=== PATIENT | male | born 1955 | race African-American/Black ===

== ENCOUNTER → 2017-06-30 | Outpatient (CLI) | payer MEDICAID ==
[2015-11-30 10:34] VITALS: BP 187/109
[2017-06-30 09:07] LABS: BASOPHILS % (AUTO) 0.6 % (0.2-1.0); EOSINOPHILS # (AUTO) 0.1 x10^3/uL (0.0-0.2); EOSINOPHILS % (AUTO) 1.5 % (0.9-2.9); HEMATOCRIT 40.9 % (42.0-54.0); HEMOGLOBIN 13.3 g/dL (13.5-18.0); LYMPHOCYTES # (AUTO) 2.5 X10^3/uL (1.3-2.9); LYMPHOCYTES % (AUTO) 33.3 % (21.0-51.0); MEAN CORPUSCULAR HEMOGLOBIN 26.4 pg (27.0-34.0); MEAN CORPUSCULAR HGB CONC 32.6 g/dL (33.0-35.0); MONOCYTES # (AUTO) 0.9 x10^3/uL (0.3-0.8); MONOCYTES % (AUTO) 12.1 % (0.0-13.0); NEUTROPHILS # (AUTO) 3.9 x10^3/uL (2.2-4.8); NEUTROPHILS % (AUTO) 52.5 % (42.0-75.0); PLATELET COUNT 274 X10^3/uL (150.0-450.0); RED BLOOD COUNT 5.04 X10^6/uL (4.7-6.0); RED CELL DISTRIBUTION WIDTH 15.6 % (11.6-16.5); WHITE BLOOD COUNT 7.4 X10^3/uL (3.6-10.0)
[2017-06-30 09:12] LABS: ALANINE AMINOTRANSFERASE 17 Units/L (12-78); ALBUMIN 3.5 g/dL (3.4-5.0); ALKALINE PHOSPHATASE 76 Units/L (46-116); ASPARTATE AMINO TRANSFERASE 13 Units/L (15-37); BLOOD UREA NITROGEN 13 mg/dL (7-18); CALCIUM 8.8 mg/dL (8.5-10.1); CARBON DIOXIDE 27.4 mmol/L (21-32); CHLORIDE 106 mmol/L (98-107); COR NA(FOR HYPERGLY) 141 mmol/L (136-145); CREATININE 1.45 mg/dL (0.70-1.30); GLUCOSE 131 mg/dL (65-99); SODIUM 140 mmol/L (136-145); TOTAL PROTEIN 8.3 g/dL (6.4-8.2); eGFR BLACK RACES > 60 (>60); eGFR NON BLACK RACES 52 (>60)
[2017-06-30 09:25] LABS: TOTAL PSA 3.44 ng/mL (0.13-4.0)
== END ==
LOC: LAB 08:36
PROVIDERS: ATTEND Obstetrics & Gynecology Obstetrics
DX: E29.1 Testicular hypofunction (principal)
CPT/HCPCS: 36415; 80053; 82670; 84153; 84403; 85025

== ENCOUNTER → 2018-03-23 | Outpatient (CLI) | payer OTHER, MEDICAID ==
[2015-11-30 10:34] VITALS: BP 187/109
[2018-03-23 09:00] LABS: BASOPHILS # (AUTO) 0.1 X10^3/uL (0.0-0.1); BASOPHILS % (AUTO) 1.1 % (0.2-1.0); EOSINOPHILS # (AUTO) 0.2 x10^3/uL (0.0-0.2); HEMATOCRIT 38.9 % (42.0-54.0); LYMPHOCYTES # (AUTO) 2.8 X10^3/uL (1.3-2.9); LYMPHOCYTES % (AUTO) 34.7 % (21.0-51.0); MEAN CORPUSCULAR HEMOGLOBIN 26.8 pg (27.0-34.0); MEAN CORPUSCULAR HGB CONC 33.4 g/dL (33.0-35.0); MEAN CORPUSCULAR VOLUME 80.3 fL (80.0-100.0); MEAN PLATELET VOLUME 7.7 fL (7.4-11.0); MONOCYTES # (AUTO) 0.9 x10^3/uL (0.3-0.8); MONOCYTES % (AUTO) 11.6 % (0.0-13.0); NEUTROPHILS # (AUTO) 4.1 x10^3/uL (2.2-4.8); NEUTROPHILS % (AUTO) 50.6 % (42.0-75.0); PLATELET COUNT 267 X10^3/uL (150.0-450.0); RED BLOOD COUNT 4.85 X10^6/uL (4.7-6.0); RED CELL DISTRIBUTION WIDTH 15.6 % (11.6-16.5); WHITE BLOOD COUNT 8.1 X10^3/uL (3.6-10.0)
[2018-03-23 09:10] LABS: ALANINE AMINOTRANSFERASE 23 Units/L (12-78); ALBUMIN 3.5 g/dL (3.4-5.0); ALKALINE PHOSPHATASE 79 Units/L (46-116); ASPARTATE AMINO TRANSFERASE 14 Units/L (15-37); BLOOD UREA NITROGEN 12 mg/dL (7-18); CALCIUM 8.9 mg/dL (8.5-10.1); CARBON DIOXIDE 29.4 mmol/L (21-32); CHLORIDE 101 mmol/L (98-107); CHOL/HDL RATIO 5.9 (0.0-5.0); CHOLESTEROL 213 mg/dL (0-200); CREATININE 1.48 mg/dL (0.70-1.30); HDL CHOLESTEROL 36 mg/dL (40-60); SODIUM 137 mmol/L (136-145); TOTAL PROTEIN 8.2 g/dL (6.4-8.2); TRIGLYCERIDES 222 mg/dL (0-150); eGFR BLACK RACES > 60 (>60); eGFR NON BLACK RACES 51 (>60)
[2018-03-23 09:27] LABS: TOTAL PSA 5.71 ng/mL (0.13-4.0)
== END ==
LOC: LAB 08:35
PROVIDERS: ATTEND Obstetrics & Gynecology Obstetrics
DX: N40.0 Benign prostatic hyperplasia without lower urinary tract symptoms (principal); I10 Essential (primary) hypertension
CPT/HCPCS: 36415; 80053; 80061; 83525; 84153; 85025

== ENCOUNTER 2019-03-22 13:56 | Inpatient (IN) ==
[2019-03-22 14:16] VITALS: BMI 27.0
--- NOTE | 2019-03-22 14:49 | DR.ABDMALE ---
HPI Time seen Time Seen by Provider: 03/22/19 14:38 PCP Primary Care Physician: Nicola Complaint Chief Complaint Doctors Comments: Patient admits to stomach pain for six days. Denies fever. Admits to vomiting yesterday and today. Chief Complaint:: "Around Tuesday I started having loose stools. Tuesday I started throwing up as well. My stomach has been hurting nonstop this whole time. Also, I haven't been able to eat anything since around Tuesday. I feel like I have been running a fever off and on as well." Source History provided by:: patient Mode of arrival Mode of Arrival: Ambulatory Timing Onset of Chief Complaint: 03/18/19 PMH PMH Past Medical History: Yes Past Medical History: GERD and Hypertension Past Surgical History: Yes Surgical History: Abdominal Surgery, Ortho Surgery and Other Past Surgical History Comment: Hernia Family History History of Family Medical Conditions: Yes Family Medical History: Cancer and Hypertension Social History Does patient currently use any type of tobacco product: Yes Have you used tobacco products in the last 12 months: Yes Type of Tobacco Use: Cigarettes Does any household member use tobacco: No Alcohol Use: Occasionally Do you use any recreational Drugs:: No Lives With: Alone Lives Where: Home infectious screening In the last 2 months have you had wt loss of >10#?: NO Have you had fever, night sweats or hemotysis?: No Have you traveled outside the country in the last 6 months?: No Isolation: Standard ROS Review of Systems Constitutional: No Symptoms Reported Respiratoy: No Symptoms Reported Gastrointestinal/Abdominal: See HPI, Abdominal Pain and Vomiting Genitourinary: No Symptoms Reported Neurological: No Symptoms Reported Musculoskeletal: No Symptoms Reported Integumentary: No Symptoms Reported Hematologic/Lymphatic: No Symptoms Reported Endocrine: No Symptoms Reported Psychiatric: No Symptoms Reported All Other Systems: Reviewed and Negative PE Vital Signs Vital Signs: Temp Pulse Pulse Resp BP BP BP 03/22/19 21:30 18 03/22/19 20:56 109 H 20 154/87 03/22/19 14:11 98.9 F 87 18 138/65 11/30/15 10:32 187/109 08/23/15 12:36 154/83 08/29/14 16:58 122/65 Pulse Ox 03/22/19 21:30 03/22/19 20:56 100 03/22/19 14:11 97 11/30/15 10:32 08/23/15 12:36 08/29/14 16:58 General Limitations: No Limitations General Appearance: Alert and In No Apparent Distress Head Head Exam: Normal Inspection, Atraumatic and Normocephalic Eyes Eye exam: Normal Appearance, PERRL and EOMI ENT ENT Exam: Normal Exam, Normal Oropharynx and Normal External Ear Exam Neck Neck Exam: Normal Inspection and Full ROM Chest Chest Inspection: Normal Inspection and Symmetric Chest Wall Rise Respiratory Respiratory Exam: Normal Lung Sounds Bilat Respiratory Exam: Bilateral: Clear to Auscultation Cardiovascular Cardiovascular Exam: Regular Rate and Normal Rhythm Abdominal Exam Abdominal Exam: Normal Inspection, Normal Bowel Sounds and Soft Abdominal Tenderness: Diffuse Rectal Rectal Exam: Deferred Back Back Exam: Normal Inspection Extremeties Extremities Exam: Normal Inspection and Full ROM Exam: Male: Deferred Neurologic Neurological Exam: Alert, Oriented X3 and CN II-XII Intact Psychiatric Psychiatric Exam: Normal Affect and Normal Mood Skin Skin Exam: Warm, Dry and Intact MDM Additional Information Obtained From Additional Findings:: fecal impaction, obstruction COURSE Treatment Treatment: Antiemetic-awaiting C/T abdomen Reevaluation 1st: Unchanged ROR Labs Reviewed Laboratory Results Reviewed?: Yes Result Diagrams: 03/22/19 14:50 03/22/19 14:50 Laboratory: WBC 8.9 X10^3/uL (3.6-10.0) 03/22/19 14:50 RBC 5.11 X10^6/uL (4.7-6.0) 03/22/19 14:50 Hgb 14.3 g/dL (13.5-18.0) 03/22/19 14:50 Hct 42.8 % (42.0-54.0) 03/22/19 14:50 MCV 83.7 fL (80.0-100.0) 03/22/19 14:50 MCH 28.0 pg (27.0-34.0) 03/22/19 14:50 MCHC 33.5 g/dL (33.0-35.0) 03/22/19 14:50 RDW 14.8 % (11.6-16.5) 03/22/19 14:50 Plt Count 202 X10^3/uL (150.0-450.0) 03/22/19 14:50 Plt Count Comment Adequate (ADEQUATE) 03/22/19 14:50 MPV 8.0 fL (7.4-11.0) 03/22/19 14:50 Neut % (Auto) 49.2 % (42.0-75.0) 03/22/19 14:50 Lymph % (Auto) 22.8 % (21.0-51.0) 03/22/19 14:50 [place] % (Auto) 27.4 % (0.0-13.0) H 03/22/19 14:50 Eos % (Auto) 0.4 % (0.9-2.9) L 03/22/19 14:50 Baso % (Auto) 0.2 % (0.2-1.0) 03/22/19 14:50 Neut # (Auto) 4.4 x10^3/uL (2.2-4.8) 03/22/19 14:50 Lymph # (Auto) 2.0 X10^3/uL (1.3-2.9) 03/22/19 14:50 [place] # (Auto) 2.4 x10^3/uL (0.3-0.8) H 03/22/19 14:50 Eos # (Auto) 0.0 x10^3/uL (0.0-0.2) 03/22/19 14:50 Baso # (Auto) 0.0 X10^3/uL (0.0-0.1) 03/22/19 14:50 Absolute Nucleated RBC 0.0 /100WBC 03/22/19 14:50 Total Counted 100 03/22/19 14:50 Neutrophils % (Manual) 40 % (39-76) 03/22/19 14:50 Band Neutrophils % 4 % (0-10) 03/22/19 14:50 Lymphocytes % (Manual) 30 % (13-43) 03/22/19 14:50 Monocytes % (Manual) 18 % (4-9) H 03/22/19 14:50 Atypical Lymphocytes 8 03/22/19 14:50 Plt Morphology Comment Normal (NORMAL) 03/22/19 14:50 RBC Morphology Normal (NORMAL) 03/22/19 14:50 Sodium 137 mmol/L (136-145) 03/22/19 14:50 Corrected Sodium TNP 03/22/19 14:50 Potassium 3.7 mmol/L (3.5-5.1) 03/22/19 14:50 Chloride 99 mmol/L (98-107) 03/22/19 14:50 Carbon Dioxide 24.0 mmol/L (21-32) 03/22/19 14:50 BUN 29 mg/dL (7-18) H 03/22/19 14:50 Creatinine 1.86 mg/dL (0.70-1.30) H 03/22/19 14:50 Est GFR (MDRD) Af Amer 47 (>60) L 03/22/19 14:50 Est GFR (MDRD) Non-Af 39 (>60) L 03/22/19 14:50 Glucose 107 mg/dL (65-99) H 03/22/19 14:50 Calcium 8.9 mg/dL (8.5-10.1) 03/22/19 14:50 Corrected Calcium 9.5 mg/dL (8.5-10.1) 03/22/19 14:50 Magnesium 1.5 mg/dL (1.7-2.9) L 03/22/19 14:50 Total Bilirubin 0.70 mg/dL (0.2-1.0) 03/22/19 14:50 AST 16 Units/L (15-37) 03/22/19 14:50 ALT 17 Units/L (12-78) 03/22/19 14:50 Alkaline Phosphatase 64 Units/L (46-116) 03/22/19 14:50 C-Reactive Protein 231.30 mg/L (0-3.0) H 03/22/19 14:50 Total Protein 8.5 g/dL (6.4-8.2) H 03/22/19 14:50 Albumin 3.3 g/dL (3.4-5.0) L 03/22/19 14:50 Globulin 5.2 g/dL (2.5-4.5) H 03/22/19 14:50 Albumin/Globulin Ratio 0.6 Ratio (1.1-2.1) L 03/22/19 14:50 Other Results Comments: Abd/pel: No acute cardiopulmonary process. Gas and stool throughout the colon with gas overlying the rectum. However, air fluid levels distended small bowel loops left hemiabdomen that measure up to 3.9cm. Findings mos in keeping with at least partial small bowel obstruction. CT abdomen and pelvis with contrast and surgical consultation should be considered. XRAY XRAY Interpreted by: Radiologist Procedures Splinting Pre-Proc Neuro Vasc Exam: normal Diagnosis Discharge Problem: Partial small bowel obstruction, Dehydration, mild
[2019-03-22 15:05] LABS: BASOPHILS % (AUTO) 0.2 % (0.2-1.0); EOSINOPHILS % (AUTO) 0.4 % (0.9-2.9); HEMATOCRIT 42.8 % (42.0-54.0); HEMOGLOBIN 14.3 g/dL (13.5-18.0); LYMPHOCYTES % (AUTO) 22.8 % (21.0-51.0); MEAN CORPUSCULAR HGB CONC 33.5 g/dL (33.0-35.0); MEAN CORPUSCULAR VOLUME 83.7 fL (80.0-100.0); MONOCYTES # (AUTO) 2.4 x10^3/uL (0.3-0.8); MONOCYTES % (AUTO) 27.4 % (0.0-13.0); NEUTROPHILS # (AUTO) 4.4 x10^3/uL (2.2-4.8); NEUTROPHILS % (AUTO) 49.2 % (42.0-75.0); PLATELET COUNT 202 X10^3/uL (150.0-450.0); RED BLOOD COUNT 5.11 X10^6/uL (4.7-6.0); RED CELL DISTRIBUTION WIDTH 14.8 % (11.6-16.5); WHITE BLOOD COUNT 8.9 X10^3/uL (3.6-10.0)
[2019-03-22 15:13] LABS: ALANINE AMINOTRANSFERASE 17 Units/L (12-78); ALBUMIN 3.3 g/dL (3.4-5.0); ALKALINE PHOSPHATASE 64 Units/L (46-116); ASPARTATE AMINO TRANSFERASE 16 Units/L (15-37); BLOOD UREA NITROGEN 29 mg/dL (7-18); CALCIUM 8.9 mg/dL (8.5-10.1); CHLORIDE 99 mmol/L (98-107); COR CA(FOR HYPOALB) 9.5 mg/dL (8.5-10.1); CREATININE 1.86 mg/dL (0.70-1.30); SODIUM 137 mmol/L (136-145); TOTAL PROTEIN 8.5 g/dL (6.4-8.2); eGFR NON BLACK RACES 39 (>60)
[2019-03-22 15:48] LABS: BAND NEUTROPHILS % 4 % (0-10)
[2019-03-22 15:49] LABS: PLATELET MORPHOLOGY COMMENT NORMAL (NORMAL)
--- NOTE | 2019-03-22 16:25 | RAD ---
ACUTE ABDOMINAL SERIES CLINICAL HISTORY: 63-year-old male with abdominal pain for 3 days with nausea vomiting. COMPARISON: None. FINDINGS: Partially imaged right reverse total shoulder arthroplasty. AP chest radiograph demonstrates normal cardiopericardial silhouette. There is no focal consolidation, pleural effusion or pneumothorax. Pulmonary vascularity is normal. Multiple air-fluid levels on upright imaging within distended small bowel loops within the left hemiabdomen measuring up to 3.9 cm on supine imaging. Gas and stool are seen throughout the colon. There is no small bowel distention. There is no radiographic evidence of pneumoperitoneum. Surgical tacks overlie the pelvis. Imaged osseous structures are intact. Soft tissues are unremarkable. IMPRESSION: 1. No acute cardiopulmonary process. 2. Gas and stool throughout the colon with gas overlying the rectum. However, air-fluid levels distended small bowel loops left hemiabdomen that measure up to 3.9 cm. Findings most in keeping with at least partial small bowel obstruction. CT abdomen and pelvis with contrast and surgical consultation should be considered. Reported By:
--- NOTE | 2019-03-22 21:05 | CT ---
CT ABDOMEN AND PELVIS WITH ORAL CONTRAST CLINICAL HISTORY: 63-year-old male with vomiting and diarrhea with abdominal pain. COMPARISON: None. TECHNIQUE: Multiple axial CT images of the abdomen and pelvis were obtained following the administration of oral contrast followed by 3.5 hr delay. No intravenous contrast was administered. The images were reformatted in the sagittal and coronal planes. Dose reduction techniques including Automated Exposure Control (AEC) and adjustment of mA and kV were utilized. FINDINGS: Scattered emphysema with pneumatoceles bilateral lower lobes without mass, nodule, effusion or pneumothorax. No consolidation. The inferior imaged heart is normal in size and there is no pericardial effusion. The liver, gallbladder, pancreas, and spleen are within normal limits for a study without IV contrast. The adrenal glands and kidneys are normal in appearance for a study without IV contrast. The ureters run in an unobstructed course to a well distended urinary bladder. No nephroureterolithiasis or hydroureteronephrosis. The prostate, seminal vesicles, and external genitalia are within normal limits. Evidence of prior bilateral inguinal hernia repair. Multiple fluid-filled distended loops of small bowel measuring up to 3.1 cm with relative decompression of small bowel within the right lower quadrant with large volume contrast persisting in the stomach and minimal contrast progressing through small bowel. Oral contrast reaches proximal ileum. Small hiatal hernia. Severe, diffuse diverticular disease without diverticulitis. Colon is otherwise unremarkable. Appendix is normal. There are no pathologically enlarged lymph nodes in the abdomen or pelvis. Severe atherosclerotic calcification abdominal aorta and its branches. Soft tissues are normal. The osseous structures are intact without fracture or malalignment. IMPRESSION: 1. Findings as above suggest at least partial small bowel obstruction with suspected transition point right lower quadrant. Recommend surgical evaluation. 2. Severe, diffuse diverticular disease without diverticulitis. 3. Normal appendix. 4. Normal gallbladder. Reported By:
[2019-03-22] MEDS ORDERED: MORPHINE SULFATE INJ 4 MG IVP PRN ×2 (21:13→23:41)
[2019-03-22] MEDS ORDERED: ZOFRAN INJ 4 MG VIAL IVP PRN ×2 (21:13→23:34)
[2019-03-22] MEDS ORDERED: ROCEPHIN VIAL 2 GRAMS IVP SCH (22:00)
[2019-03-22] MEDS ORDERED: NS 1000 ML 1,000 ML IV SCH (22:00)
[2019-03-22] MEDS: NS 1000 ML 1,000 ML IV SCH (23:55)
[2019-03-23] MEDS ORDERED: K-DUR TAB 20 MEQ PO PRN (00:29)
[2019-03-23] MEDS ORDERED: POTASSIUM CHL 40 MEQ/NS 0.45% 500 ML IV PRN (00:29)
[2019-03-23] MEDS ORDERED: POTASSIUM CHL 60 MEQ/NS 0.45% 500 ML IV PRN (00:29)
[2019-03-23] MEDS ORDERED: POTASSIUM CHLORIDE LIQ 20 MEQ UDC PO PRN (00:29)
[2019-03-23] MEDS ORDERED: KLOR-CON PO PRN (00:29)
[2019-03-23] MEDS ORDERED: MICRO K EXTEN CAP 10 MEQ PO PRN (00:29)
[2019-03-23] MEDS ORDERED: K-RIDER 10 MEQ/NS 100 ML 10 MEQ/100 ML BAG IV PRN (00:29)
[2019-03-23] MEDS ORDERED: MAGNESIUM SULFATE 1 GRAM/100 mL PREMIX 2 G/200 ML BAG IV ONE (01:31)
[2019-03-23] MEDS: MAGNESIUM SULFATE 1 GRAM/100 mL PREMIX 1 GM/100 ML BAG IV PRN ×2 (01:33→02:52)
[2019-03-23 05:19] LABS: BASOPHILS % (AUTO) 0.1 % (0.2-1.0); EOSINOPHILS % (AUTO) 0.2 % (0.9-2.9); HEMATOCRIT 41.8 % (42.0-54.0); HEMOGLOBIN 13.8 g/dL (13.5-18.0); LYMPHOCYTES # (AUTO) 1.5 X10^3/uL (1.3-2.9); LYMPHOCYTES % (AUTO) 26.7 % (21.0-51.0); MEAN CORPUSCULAR HEMOGLOBIN 27.7 pg (27.0-34.0); MEAN PLATELET VOLUME 8.7 fL (7.4-11.0); MONOCYTES # (AUTO) 1.2 x10^3/uL (0.3-0.8); MONOCYTES % (AUTO) 22.8 % (0.0-13.0); NEUTROPHILS # (AUTO) 2.7 x10^3/uL (2.2-4.8); NEUTROPHILS % (AUTO) 50.2 % (42.0-75.0); PLATELET COUNT 212 X10^3/uL (150.0-450.0); RED BLOOD COUNT 4.97 X10^6/uL (4.7-6.0); RED CELL DISTRIBUTION WIDTH 14.9 % (11.6-16.5); WHITE BLOOD COUNT 5.5 X10^3/uL (3.6-10.0)
[2019-03-23 05:30] LABS: ALBUMIN 2.9 g/dL (3.4-5.0); CALCIUM 8.6 mg/dL (8.5-10.1); CARBON DIOXIDE 23.9 mmol/L (21-32); COR CA(FOR HYPOALB) 9.5 mg/dL (8.5-10.1); CREATININE 1.63 mg/dL (0.70-1.30); TOTAL PROTEIN 7.8 g/dL (6.4-8.2)
[2019-03-23 06:03] LABS: BAND NEUTROPHILS % 10 % (0-10); PLATELET MORPHOLOGY COMMENT NORMAL (NORMAL)
--- NOTE | 2019-03-23 06:12 | RAD ---
HISTORY: Small-bowel obstruction Study: KUB Comparison: 03/22/[address] abdomen pelvis Findings: Multiple dilated loops of small bowel are identified in the left upper quadrant with little gas distally. Findings are most consistent with small-bowel obstruction and not significantly changed from the prior examination. No abnormal masses or abnormal calcifications are identified. The regional skeleton is intact. IMPRESSION: Findings consistent with small-bowel obstruction Reported By:
--- NOTE | 2019-03-23 09:11 | DR.PROGNOT ---
Hospital Progress Notes - Progress Note for Day of: Progress Note Date: 03/23/19 - Chief Complaint Chief Complaint: feeling much better this morning . had large BM this am . abdominal xray still showing partial SBO .. Pt rerfused NGT last night . - Past Medical Family Social History Past Med/Fam/Surg Hx: No changes since H&P Allergies: Allergies No Known Drug Allergies Allergy (Verified 03/22/19 14:10) - Review Of Systems ROS: No change since H&P - Vital Signs Vital Signs: Temperature 98.6 F Pulse Rate [Right Brachial] 79 Pulse Rate 79 Respiratory Rate 27 Blood Pressure [Left Arm] 140/63 Blood Pressure [Right Arm] 142/67 Blood Pressure 135/64 O2 Sat by Pulse Oximetry 97 - Physical Exam Oriented: Normal Eyes: Normal Ear: Normal Nose: Normal Cardiovascular: Normal : Normal GI:Auscultation: Normal GI: Tenderness: Other (moderate distention and diffuse tenderness , BS +) Speech Pattern: Clear, Appropriate - Laboratory and Diagnostics Result Diagrams: 03/23/19 04:01 03/23/19 04:01 Labs: Laboratory WBC 5.5 X10^3/uL (3.6-10.0) 03/23/19 04:01 RBC 4.97 X10^6/uL (4.7-6.0) 03/23/19 04:01 Hgb 13.8 g/dL (13.5-18.0) 03/23/19 04:01 Hct 41.8 % (42.0-54.0) L 03/23/19 04:01 MCV 84.0 fL (80.0-100.0) 03/23/19 04:01 MCH 27.7 pg (27.0-34.0) 03/23/19 04:01 MCHC 33.0 g/dL (33.0-35.0) 03/23/19 04:01 RDW 14.9 % (11.6-16.5) 03/23/19 04:01 Plt Count 212 X10^3/uL (150.0-450.0) 03/23/19 04:01 Plt Count Comment Adequate (ADEQUATE) 03/23/19 04:01 MPV 8.7 fL (7.4-11.0) 03/23/19 04:01 Neut % (Auto) 50.2 % (42.0-75.0) 03/23/19 04:01 Lymph % (Auto) 26.7 % (21.0-51.0) 03/23/19 04:01 [place] % (Auto) 22.8 % (0.0-13.0) H 03/23/19 04:01 Eos % (Auto) 0.2 % (0.9-2.9) L 03/23/19 04:01 Baso % (Auto) 0.1 % (0.2-1.0) L 03/23/19 04:01 Neut # (Auto) 2.7 x10^3/uL (2.2-4.8) 03/23/19 04:01 Lymph # (Auto) 1.5 X10^3/uL (1.3-2.9) 03/23/19 04:01 [place] # (Auto) 1.2 x10^3/uL (0.3-0.8) H 03/23/19 04:01 Eos # (Auto) 0.0 x10^3/uL (0.0-0.2) 03/23/19 04:01 Baso # (Auto) 0.0 X10^3/uL (0.0-0.1) 03/23/19 04:01 Absolute Nucleated RBC 0.0 /100WBC 03/23/19 04:01 Total Counted 100 03/23/19 04:01 Neutrophils % (Manual) 28 % (39-76) L 03/23/19 04:01 Band Neutrophils % 10 % (0-10) 03/23/19 04:01 Lymphocytes % (Manual) 32 % (13-43) 03/23/19 04:01 Monocytes % (Manual) 30 % (4-9) H 03/23/19 04:01 Atypical Lymphocytes 8 03/22/19 14:50 Plt Morphology Comment Normal (NORMAL) 03/23/19 04:01 RBC Morphology Normal (NORMAL) 03/23/19 04:01 Sodium 136 mmol/L (136-145) 03/23/19 04:01 Corrected Sodium 136 mmol/L (136-145) 03/23/19 04:01 Potassium 3.5 mmol/L (3.5-5.1) 03/23/19 04:01 Chloride 99 mmol/L (98-107) 03/23/19 04:01 Carbon Dioxide 23.9 mmol/L (21-32) 03/23/19 04:01 BUN 31 mg/dL (7-18) H 03/23/19 04:01 Creatinine 1.63 mg/dL (0.70-1.30) H 03/23/19 04:01 Est GFR (MDRD) Af Amer 55 (>60) L 03/23/19 04:01 Est GFR (MDRD) Non-Af 45 (>60) L 03/23/19 04:01 Glucose 118 mg/dL (65-99) H 03/23/19 04:01 Calcium 8.6 mg/dL (8.5-10.1) 03/23/19 04:01 Corrected Calcium 9.5 mg/dL (8.5-10.1) 03/23/19 04:01 Magnesium 2.8 mg/dL (1.7-2.9) 03/23/19 04:01 Total Bilirubin 0.50 mg/dL (0.2-1.0) 03/23/19 04:01 AST 14 Units/L (15-37) L 03/23/19 04:01 ALT 15 Units/L (12-78) 03/23/19 04:01 Alkaline Phosphatase 56 Units/L (46-116) 03/23/19 04:01 C-Reactive Protein 231.30 mg/L (0-3.0) H 03/22/19 14:50 Total Protein 7.8 g/dL (6.4-8.2) 03/23/19 04:01 Albumin 2.9 g/dL (3.4-5.0) L 03/23/19 04:01 Globulin 4.9 g/dL (2.5-4.5) H 03/23/19 04:01 Albumin/Globulin Ratio 0.6 Ratio (1.1-2.1) L 03/23/19 04:01 - Assessment and Plan 1: subsiding partial SBO . adhesions vs IBD . same conservative measures .clear liquid . repeat xray in am. future GI W/U . will follow in the office next week. - Problem Patient Problems: Patient Problems Partial small bowel obstruction (Acute) K56.600 Dehydration, mild (Acute) E86.0
[2019-03-23] MEDS: NS 1000 ML 1,000 ML IV SCH ×4 (09:27→23:45)
[2019-03-23] MEDS: PROTONIX INJ 40 MG VIAL IVP SCH (09:27)
[2019-03-23] MEDS: ROCEPHIN VIAL 2 GRAMS 2 G in NS 100 ML IV + SPIKE MINIBAG* 100 ML IV SCH ×2 (09:27→20:44)
--- NOTE | 2019-03-23 10:49 | RAD ---
HISTORY: Abdominal pain Study: Flat and upright abdomen, PA chest Comparison: 03/23/2019 Findings: The heart is enlarged. No congestive heart failure is noted. The [place] are normal. The lung lindsay are clear. Multiple dilated small bowel loops are present in the upper mid abdomen but with some gas distally. Findings are consistent with at least a partial small bowel obstruction. No pneumoperitoneum is identified. No abnormal masses or abnormal calcifications are identified. IMPRESSION: Findings consistent with at least a partial small bowel obstruction Mild cardiomegaly without congestive heart failure Lungs clear Reported By:
[2019-03-23] MEDS: LINZESS PO SCH (12:52)
[2019-03-23] MEDS ORDERED: TYLENOL 325 MG TAB PO PRN (16:59)
[2019-03-23] MEDS: RESTORIL CAP 15 MG PO PRN (20:43)
[2019-03-24 05:40] LABS: BASOPHILS % (AUTO) 0.2 % (0.2-1.0); EOSINOPHILS # (AUTO) 0.1 x10^3/uL (0.0-0.2); EOSINOPHILS % (AUTO) 1.5 % (0.9-2.9); HEMATOCRIT 41.3 % (42.0-54.0); HEMOGLOBIN 13.3 g/dL (13.5-18.0); LYMPHOCYTES # (AUTO) 1.5 X10^3/uL (1.3-2.9); LYMPHOCYTES % (AUTO) 32.7 % (21.0-51.0); MEAN CORPUSCULAR HEMOGLOBIN 27.4 pg (27.0-34.0); MEAN CORPUSCULAR HGB CONC 32.3 g/dL (33.0-35.0); MEAN CORPUSCULAR VOLUME 84.9 fL (80.0-100.0); MEAN PLATELET VOLUME 8.7 fL (7.4-11.0); MONOCYTES % (AUTO) 22.2 % (0.0-13.0); NEUTROPHILS % (AUTO) 43.4 % (42.0-75.0); PLATELET COUNT 215 X10^3/uL (150.0-450.0); RED BLOOD COUNT 4.86 X10^6/uL (4.7-6.0); RED CELL DISTRIBUTION WIDTH 14.9 % (11.6-16.5); WHITE BLOOD COUNT 4.6 X10^3/uL (3.6-10.0)
[2019-03-24 05:55] LABS: ALANINE AMINOTRANSFERASE 8 Units/L (12-78); ALBUMIN 2.4 g/dL (3.4-5.0); ALKALINE PHOSPHATASE 45 Units/L (46-116); ASPARTATE AMINO TRANSFERASE 12 Units/L (15-37); BLOOD UREA NITROGEN 14 mg/dL (7-18); CALCIUM 8.2 mg/dL (8.5-10.1); CHLORIDE 108 mmol/L (98-107); COR CA(FOR HYPOALB) 9.5 mg/dL (8.5-10.1); CREATININE 1.17 mg/dL (0.70-1.30); SODIUM 139 mmol/L (136-145); TOTAL PROTEIN 6.6 g/dL (6.4-8.2); eGFR NON BLACK RACES > 60 (>60)
[2019-03-24 06:47] LABS: BAND NEUTROPHILS % 2 % (0-10)
[2019-03-24 06:48] LABS: PLATELET MORPHOLOGY COMMENT NORMAL (NORMAL)
--- NOTE | 2019-03-24 06:50 | RAD ---
Examination: Abdomen series with PA chest, four views History: Abdominal pain Comparison 03/23/2019 Findings: Supine and upright views of abdomen again demonstrate selective small-bowel distention with paucity of colon gas. No free air is demonstrated. Cardiac prominence and clear lungs again noted. There is no evidence for developing mass formation or ascites. Vas deferens calcifications consistent with diabetes. Impression: Persistent small bowel dilatation with pattern described consistent with partial SBO. There is little change in the described pattern since 1 day earlier. Reported By:
[2019-03-24] MEDS ORDERED: COLACE CAP 100 MG PO STA (07:47)
[2019-03-24] MEDS ORDERED: CITROMA PO ONE (07:47)
[2019-03-24] MEDS: ROCEPHIN VIAL 2 GRAMS 2 G in NS 100 ML IV + SPIKE MINIBAG* 100 ML IV SCH ×2 (08:45→20:45)
[2019-03-24] MEDS: LINZESS PO SCH (08:46)
[2019-03-24] MEDS: PROTONIX INJ 40 MG VIAL IVP SCH (08:46)
[2019-03-24] MEDS ORDERED: FLEXERIL TAB 10 MG PO PRN (09:53)
[2019-03-24] MEDS: NEURONTIN TAB 600 MG PO SCH ×3 (10:40→22:40)
[2019-03-24] MEDS: ZESTRIL TAB 10 MG PO SCH (10:41)
[2019-03-24] MEDS: MOBIC TAB 15 MG PO SCH (10:41)
[2019-03-24] MEDS: NS 1000 ML 1,000 ML IV SCH ×2 (10:41→17:53)
[2019-03-24] MEDS: NORCO 10/325 TAB PO PRN (13:56)
[2019-03-24] MEDS: PriLOSEC PO SCH (14:33)
[2019-03-24] MEDS ORDERED: FLOMAX PO SCH (21:00)
--- NOTE | 2019-03-24 22:41 | RAD ---
Acute abdominal series, four views Indication: Partial small bowel obstruction Comparison: 03/24/2019 Findings: There is stable mild cardiomegaly without congestive failure. No focal infiltrate or significant effusion is identified. No pneumothorax. Borderline dilated gas-filled small bowel loops throughout the lower abdomen with relative paucity of gas within the distal colon and rectum appears overall unchanged since earlier today, again suggestive for partial small bowel obstruction. No free air or pneumatosis is identified. No pathologic calcifications seen. Imaged osseous structures are grossly intact. Impression: No acute cardiopulmonary abnormality. Unchanged bowel gas pattern suggestive for persistent partial small bowel obstruction. Reported By:
[2019-03-25] MEDS: RESTORIL CAP 15 MG PO PRN (01:24)
[2019-03-25] MEDS: NS 1000 ML 1,000 ML IV SCH ×2 (02:10→09:22)
[2019-03-25] MEDS: NEURONTIN TAB 600 MG PO SCH ×2 (06:06→13:25)
[2019-03-25] MEDS: MOBIC TAB 15 MG PO SCH (09:19)
[2019-03-25] MEDS: LINZESS PO SCH (09:19)
[2019-03-25] MEDS: ROCEPHIN VIAL 2 GRAMS 2 G in NS 100 ML IV + SPIKE MINIBAG* 100 ML IV SCH (09:19)
[2019-03-25] MEDS: PriLOSEC PO SCH (09:19)
[2019-03-25] MEDS: ZESTRIL TAB 10 MG PO SCH (09:22)
[2019-03-25] MEDS: NORCO 10/325 TAB PO PRN (13:25)
[2019-03-25] MEDS ORDERED: CATAPRES TAB 0.1 MG PO ONE (14:19)
[2019-03-25] MEDS ORDERED: CATAPRES TAB 0.1 MG ONE (14:21)
[2019-03-25 16:10] VITALS: BP 158/82
== END 2019-03-24 15:35 | disposition home or self-care (01) | DRG 390 ==
LOC: ER 14:09 → ICU 20:59 → MED/SURG 03-23 15:59
PROVIDERS: ADMIT Obstetrics & Gynecology Obstetrics; ATTEND Obstetrics & Gynecology Obstetrics
DX: R10.84 Generalized abdominal pain; K21.9 Gastro-esophageal reflux disease without esophagitis; K59.09 Other constipation; E86.0 Dehydration; I10 Essential (primary) hypertension; M13.0 Polyarthritis, unspecified; F41.8 Other specified anxiety disorders; R79.82 Elevated C-reactive protein (CRP); K56.690 Other partial intestinal obstruction; R94.4 Abnormal results of kidney function studies; R11.2 Nausea with vomiting, unspecified
CPT/HCPCS: 36415; 74000; 74018; 74022; 74176; 80053; 83735; 85025; 86140; 96365; 96374; 96375; 99284; A4216; A4222; C9113; J0696; J2270; J2405; J3475; J3490; J7030; J7050

== ENCOUNTER 2019-06-29 18:26 | Inpatient (IN) ==
--- NOTE | 2019-06-29 18:44 | DR.DIZZY ---
HPI Time seen Time Seen by Provider: 06/29/19 18:30 PCP Primary Care Physician: JEREMIE HPI Comment HPI Comment: PATIENT IS 64YR OLD MALE THAT PRESENTS TO ED WITH GENERALIZED WEAKNESS AND SYNCOPAL EPISODES. PATIENT PASSED OUT YESTERDAY AND TODAY. NO FEVER OR HEADACHE. DENIES CHEST PAIN OR HEAD TRAUMA. Complaint Chief Complaint Doctor Comments: GENERALIZED WEAKNESS, FAINTED TODAY. Chief Complaint:: PT STATES HE PASSED OUT YESTERDAY AND TODAY. PT STATES HE WILL WAKE UP AND HE WILL BE ON THE GROUND. Nurses Notes Reviewed Nurses Notes Review: Yes Source History Provided: Patient Mode of Arrival Mode of Arrival: Ambulatory Timing Onset of Chief Complaint: 06/28/19 Duration Duration: Constant Duration: Days Location of Weakness Weakness Location: Generalized Context Onset: With light exertion Does pt take pot. toxic medication?: No History of: CVA Stroke Symptoms: Dizziness Severity Severity: Abnormal activity level Associated signs and symptoms Associated Signs and Symptoms: Syncope Other history Other history: HISTORY HYPERTENSION AND PROSTATE CA. PMH PMH Past Medical History: Yes Past Medical History: GERD and Hypertension Past Medical History Comment: PROSTATE CA Past Surgical History: Yes Surgical History: Abdominal Surgery, Ortho Surgery and Other Family History History of Family Medical Conditions: Yes Family Medical History: Cancer and Hypertension Social History Does patient currently use any type of tobacco product: Yes Have you used tobacco products in the last 12 months: Yes Type of Tobacco Use: Cigarettes Does any household member use tobacco: Yes Alcohol Use: Occasionally Do you use any recreational Drugs:: No Lives With: Family Lives Where: Home infectious screening In the last 2 months have you had wt loss of >10#?: NO Have you had fever, night sweats or hemotysis?: No Have you traveled outside the country in the last 6 months?: No Isolation: Standard ROS Review of Systems Constitutional: No Symptoms Reported, See HPI, Weakness and Fatigue; negative Chills, Diaphoresis, Fever and Loss of Appetite Eyes: No Symptoms Reported and See HPI; negative Eye Pain, Blurred Vision, Tearing, Discharge, Photophobia and Diplopia ENTM: No Symptoms Reported and See HPI; negative Ear Pain, Nose Discharge, Nose Congestion and Throat Pain Respiratoy: No Symptoms Reported and See HPI; negative Moist Cough, Short of Breath and Wheezing Cardiovascular: No Symptoms Reported and See HPI; negative Chest Pain, Edema and Palpitations Gastrointestinal/Abdominal: No Symptoms Reported and See HPI; negative Abdominal Pain, Constipation, Diarrhea, Nausea and Vomiting Genitourinary: No Symptoms Reported and See HPI; negative Dysuria, Frequency and Hematuria Neurological: See HPI, Weakness and Dizziness; negative Headache Musculoskeletal: No Symptoms Reported and See HPI; negative Back Pain and Muscle Pain Integumentary: No Symptoms Reported and See HPI; negative Change in Color, Rash and Juandice Hematologic/Lymphatic: No Symptoms Reported and See HPI; negative Easy Bleeding, Easy Bruising, Swollen Glands and Lymphadenopathy Endocrine: No Symptoms Reported and See HPI; negative Increased Thirst, Increased Urine and Decreased Appetite Psychiatric: No Symptoms Reported and See HPI All Other Systems: Reviewed and Negative PE Vital Signs Vitals: Temperature 98.2 F Pulse Rate [Left] 89 Pulse Rate 88 Respiratory Rate 18 Blood Pressure [Left Arm] 156/72 Blood Pressure [Right Arm] 158/82 Blood Pressure 136/70 O2 Sat by Pulse Oximetry 98 General Limitations: No Limitations General Appearance: Alert and In No Apparent Distress Head Head Exam: Normal Inspection Eyes Eye exam: Normal Appearance, PERRL and EOMI; negative Scleral Icterus and Conjunctival Injection Pupils: Regular, Round: Bilateral and Reactive: Bilateral Sclera/Conjunctival: Normal Inspection: Bilateral ENT ENT Exam: Normal Exam, Normal Oropharynx, Normal External Ear Exam and TM's Normal Bilaterally Neck Neck Exam: Normal Inspection and Trachea Midline; negative Tenderness and Lymphadenopathy Chest Chest Inspection: Normal Inspection and Symmetric Chest Wall Rise; negative Te nderness Respiratory Respiratory Exam: Normal Lung Sounds Bilat; negative Accessory Muscle Use, Chest Wall Tenderness and Respiratory Distress Respiratory Exam: Bilateral: Clear to Auscultation Cardiovascular Cardiovascular Exam: Regular Rate, Normal Rhythm and Normal Heart Sounds; negative Systolic Murmur and Diastolic Murmur Abdominal Exam Abdominal Exam: Normal Inspection, Normal Bowel Sounds and Soft; negative Tenderness Rectal Rectal Exam: Deferred Extremeties Extremities Exam: Normal Inspection and Normal Capillary Refill; negative Tenderness, Edema and Calf Tenderness Back Back Exam: Normal Inspection and Full ROM; negative Tenderness Neurologic Neurological Exam: Alert, Oriented X3 and CN II-XII Intact; negative Motor Sensory Deficit Patient Oriented To: Person, Place and Time Speech: Fluid Speech Cranial Nerve Exam: EOM Function (II, III, IV, ): Normal, Facial Sensation (V): Normal, Facial Palsy (VII): Normal, Gag reflex (XI): Normal, Spinal Accessory Function (XI): Normal and Tongue Deviation: Normal Motor Strength - LUE: 5/5 Motor Strength - RUE: 5/5 Motor Strength - LLE: 5/5 Motor Strength - RLE: 5/5 Upper Motor Neuron Exam: Babinski Sign: Normal Psychiatric Psychiatric Exam: Normal Affect and Normal Mood Skin Skin Exam: Warm, Dry, Intact and Normal Color MDM Differential Diagnosis Differential Diagnosis: Anemia, CVA, Dehydration, Dysrhythmia, Electrolyte disorder, Hypoglycemia, Labyrinthitis, Myocardial infarction, Pulmonary embolus, TIA and Central Vertigo COURSE Treatment Treatment: SEE ORDERS. NS 1L IV BOLUS. Consultation Consultation Comments: PATIENT DISCUSS WITH DR. SANCHEZ. HE WILL ADMIT PATIENT. Education/Counseling Education/Counseling: Patient Educated On: Diagnosis ROR Labs Reviewed Laboratory Results Reviewed?: Yes Result Diagrams: 07/02/19 05:35 07/02/19 05:35 Laboratory: WBC 6.3 X10^3/uL (3.6-10.0) 07/02/19 05:35 RBC 4.37 X10^6/uL (4.7-6.0) L 07/02/19 05:35 Hgb 12.2 g/dL (13.5-18.0) L 07/02/19 05:35 Hct 37.1 % (42.0-54.0) L 07/02/19 05:35 MCV 84.9 fL (80.0-100.0) 07/02/19 05:35 MCH 27.8 pg (27.0-34.0) 07/02/19 05:35 MCHC 32.8 g/dL (33.0-35.0) L 07/02/19 05:35 RDW 16.7 % (11.6-16.5) H 07/02/19 05:35 Plt Count 204 X10^3/uL (150.0-450.0) 07/02/19 05:35 MPV 7.6 fL (7.4-11.0) 07/02/19 05:35 Neut % (Auto) 55.5 % (42.0-75.0) 07/02/19 05:35 Lymph % (Auto) 27.8 % (21.0-51.0) 07/02/19 05:35 [place] % (Auto) 14.8 % (0.0-13.0) H 07/02/19 05:35 Eos % (Auto) 1.7 % (0.9-2.9) 07/02/19 05:35 Baso % (Auto) 0.2 % (0.2-1.0) 07/02/19 05:35 Neut # (Auto) 3.5 x10^3/uL (2.2-4.8) 07/02/19 05:35 Lymph # (Auto) 1.8 X10^3/uL (1.3-2.9) 07/02/19 05:35 [place] # (Auto) 0.9 x10^3/uL (0.3-0.8) H 07/02/19 05:35 Eos # (Auto) 0.1 x10^3/uL (0.0-0.2) 07/02/19 05:35 Baso # (Auto) 0.0 X10^3/uL (0.0-0.1) 07/02/19 05:35 Absolute Nucleated RBC 0.0 /100WBC 07/02/19 05:35 Sodium 140 mmol/L (136-145) 07/02/19 05:35 Corrected Sodium TNP 07/02/19 05:35 Potassium 4.4 mmol/L (3.5-5.1) 07/02/19 05:35 Chloride 108 mmol/L (98-107) H 07/02/19 05:35 Carbon Dioxide 23.0 mmol/L (21-32) 07/02/19 05:35 BUN 12 mg/dL (7-18) 07/02/19 05:35 Creatinine 1.09 mg/dL (0.70-1.30) 07/02/19 05:35 Est GFR (MDRD) Af Amer > 60 (>60) 07/02/19 05:35 Est GFR (MDRD) Non-Af > 60 (>60) 07/02/19 05:35 Glucose 91 mg/dL (65-99) 07/02/19 05:35 Calcium 8.5 mg/dL (8.5-10.1) 07/02/19 05:35 Corrected Calcium 9.5 mg/dL (8.5-10.1) 07/02/19 05:35 Magnesium 1.7 mg/dL (1.7-2.9) 06/30/19 06:25 Total Bilirubin 0.30 mg/dL (0.2-1.0) 07/02/19 05:35 AST 14 Units/L (15-37) L 07/02/19 05:35 ALT 11 Units/L (12-78) L 07/02/19 05:35 Alkaline Phosphatase 52 Units/L (46-116) 07/02/19 05:35 Creatine Kinase 357 Units/L (39-308) H 06/30/19 11:45 CK-MB (CK-2) 2.5 ng/mL (0-4.0) 06/30/19 11:45 CK/CKMB % Calc 0.7 % (<4) 06/30/19 11:45 Troponin I < 0.02 ng/mL (0-1.5) 06/30/19 11:45 Total Protein 6.8 g/dL (6.4-8.2) 07/02/19 05:35 Albumin 2.8 g/dL (3.4-5.0) L 07/02/19 05:35 Globulin 4.0 g/dL (2.5-4.5) 07/02/19 05:35 Albumin/Globulin Ratio 0.7 Ratio (1.1-2.1) L 07/02/19 05:35 Specimen Type Catherized urine 06/30/19 00:32 Urine Color Yellow (YELLOW) 06/30/19 00:32 Urine Appearance Clear (CLEAR) 06/30/19 00:32 Urine pH 5.0 (5.0 - 8.0) 06/30/19 00:32 Ur Specific [place] 1.015 (1.000-1.030) 06/30/19 00:32 Urine Protein 1+ (NEGATIVE) 06/30/19 00:32 Urine Glucose (UA) Negative (NEGATIVE) 06/30/19 00:32 Urine Ketones Negative (NEGATIVE) 06/30/19 00:32 Urine Occult Blood 4+ (NEGATIVE) 06/30/19 00:32 Urine Nitrite Negative (NEGATIVE) 06/30/19 00:32 Urine Bilirubin Negative (NEGATIVE) 06/30/19 00:32 Urine Urobilinogen Normal (NORMAL) 06/30/19 00:32 Ur Leukocyte Esterase Negative (NEGATIVE) 06/30/19 00:32 Urine RBC 5-10 /HPF (NONE SEEN) 06/30/19 00:32 Urine WBC None seen /HPF (NONE SEEN) 06/30/19 00:32 Ur Squamous Epith Cells Rare /HPF (NEGATIVE) 06/30/19 00:32 Urine Bacteria Negative /HPF (NEGATIVE) 06/30/19 00:32 Ur Culture Indicated? No/not indicated 06/30/19 00:32 Urine Opiates Screen Negative (NEG=<300) 06/30/19 00:32 Urine Methadone Screen Negative (NEG=<300) 06/30/19 00:32 Ur Barbiturates Screen Negative (NEG=<200) 06/30/19 00:32 Ur Phencyclidine Scrn Negative (NEG=<25) 06/30/19 00:32 Ur Amphetamines Screen Negative (NEG=<1000) 06/30/19 00:32 U Benzodiazepines Scrn Negative (NEG=<200) 06/30/19 00:32 Urine Cocaine Screen Positive (NEG=<300) 06/30/19 00:32 U Marijuana (THC) Screen Positive (NEG=<50) A 06/30/19 00:32 XRAY XRAY Interpreted by: Radiologist XRAY Findings: REPORT NOTED AND DISCUSS WITH PATIENT. EKG Rate: 89 [place]: Normal Rhythm: NSR Block: None Hypertrophy: None ST: Normal (ABNORMAL R WAVE PROGRESSION.) Opioid Opioid Risk Tool Age (Carlos box if 16-45): No History of Preadolescent Sexual Abuse: No Total: 0 Total Score Risk Category: Low Risk Copyright: Ken PARTIDA predicting aberrant behaviors Diagnosis Discharge Problem: Dehydration Acute renal failure Qualifiers: Acute renal failure type: unspecified Qualified Code(s): N17.9 - Acute kidney failure, unspecified Instructions Instructions: Steps to Quit Smoking, [id number] Acute Kidney Injury, Adult Dehydration, Adult, [id number] Rehydration, Adult Syncope, Ixci-ya-Mpet Forms: Patient Portal
--- NOTE | 2019-06-29 19:04 | CT ---
CT brain without contrast Indication: Syncopal episode Comparison: None available Technique: Multiple axial images of the brain were obtained from the skull base to the vertex without administration of IV contrast. Dose reduction techniques including automated exposure control (AEC) and adjustment of mA and kV were utilized. Findings: Subcortical hypoattenuation within the right centrum semiovale and superior basal ganglia represents subacute/chronic ischemia. There is mild generalized cerebral atrophy. No acute intraparenchymal hemorrhage or mass can be identified. No extra-axial fluid collections are seen. No alteration in the attenuation of the brain parenchyma can be identified to suggest acute or subacute ischemic change. The ventricular system is symmetric and nondilated. The extracranial structures are grossly unremarkable. IMPRESSION: 1. Subacute to chronic infarct within the right centrum semiovale and superior basal ganglia. No loss of aguilera-white demonstration identified to suggest acute ischemia. No acute intracranial hemorrhage. 2. Mild generalized cerebral atrophy. Reported By:
--- NOTE | 2019-06-29 19:07 | RAD ---
HISTORY: Syncope Study: Single-view chest Comparison: 01/08/2015 Findings: The trachea is midline. The cardiac silhouette is enlarged with a tortuous thoracic aorta. The lungs are clear without focal infiltrate or effusion. The bony thorax is unremarkable. IMPRESSION: 1. No acute cardiopulmonary disease. Reported By:
[2019-06-29 19:15] LABS: BASOPHILS % (AUTO) 0.6 % (0.2-1.0); EOSINOPHILS # (AUTO) 0.1 x10^3/uL (0.0-0.2); HEMATOCRIT 40.8 % (42.0-54.0); HEMOGLOBIN 13.6 g/dL (13.5-18.0); LYMPHOCYTES # (AUTO) 1.8 X10^3/uL (1.3-2.9); LYMPHOCYTES % (AUTO) 22.4 % (21.0-51.0); MEAN CORPUSCULAR HEMOGLOBIN 28.4 pg (27.0-34.0); MEAN CORPUSCULAR HGB CONC 33.3 g/dL (33.0-35.0); MEAN CORPUSCULAR VOLUME 85.2 fL (80.0-100.0); MEAN PLATELET VOLUME 7.7 fL (7.4-11.0); MONOCYTES % (AUTO) 12.2 % (0.0-13.0); NEUTROPHILS # (AUTO) 5.1 x10^3/uL (2.2-4.8); NEUTROPHILS % (AUTO) 63.8 % (42.0-75.0); PLATELET COUNT 226 X10^3/uL (150.0-450.0); RED BLOOD COUNT 4.79 X10^6/uL (4.7-6.0); RED CELL DISTRIBUTION WIDTH 16.3 % (11.6-16.5)
[2019-06-29 19:32] LABS: BLOOD UREA NITROGEN 59 mg/dL (7-18); CALCIUM 8.3 mg/dL (8.5-10.1); CHLORIDE 101 mmol/L (98-107); CREATININE 5.77 mg/dL (0.70-1.30); SODIUM 138 mmol/L (136-145); TROPONIN I < 0.02 ng/mL (0-1.5); eGFR NON BLACK RACES 11 (>60)
[2019-06-29 20:06] LABS: ALANINE AMINOTRANSFERASE 19 Units/L (12-78); ALBUMIN 3.9 g/dL (3.4-5.0); ALKALINE PHOSPHATASE 61 Units/L (46-116); ASPARTATE AMINO TRANSFERASE 24 Units/L (15-37); CKMB % 0.9 % (<4); CREATINE KINASE 806 Units/L (39-308); TOTAL PROTEIN 8.5 g/dL (6.4-8.2)
[2019-06-29 20:09] LABS: CREATINE KINASE MB 7.4 ng/mL (0-4.0)
[2019-06-29] MEDS ORDERED: NS 1000 ML 1,000 ML IV ONE ×2 (22:10→22:31)
[2019-06-29] MEDS ORDERED: NS 1000 ML 1,000 ML ONE (22:12)
[2019-06-29 23:02] LABS: BILIRUBIN,URINE NEGATIVE (NEGATIVE); BLOOD/HEMOGLOBIN,URINE 2+ (NEGATIVE); GLUCOSE, URINE NEGATIVE (NEGATIVE); KETONES,URINE NEGATIVE (NEGATIVE); LEUKOCYTE ESTERASE ,URINE NEGATIVE (NEGATIVE); NITRITES,URINE NEGATIVE (NEGATIVE); PROTEIN,URINE 2+ (NEGATIVE); UROBILINOGEN,URINE NORMAL (NORMAL)
[2019-06-29 23:11] LABS: APPEARANCE,URINE CLEAR (CLEAR); BACTERIA,URINE NEGATIVE /HPF (NEGATIVE); COLOR,URINE YELLOW (YELLOW); RBC,URINE NONE SEEN /HPF (NONE SEEN); SQUAMOUS EPITHELIAL CELL,UR FEW /HPF (NEGATIVE)
[2019-06-30] MEDS: NS 1000 ML 1,000 ML IV SCH ×5 (00:17→20:49)
[2019-06-30 00:43] LABS: BILIRUBIN,URINE NEGATIVE (NEGATIVE); BLOOD/HEMOGLOBIN,URINE 4+ (NEGATIVE); GLUCOSE, URINE NEGATIVE (NEGATIVE); KETONES,URINE NEGATIVE (NEGATIVE); LEUKOCYTE ESTERASE ,URINE NEGATIVE (NEGATIVE); NITRITES,URINE NEGATIVE (NEGATIVE); PROTEIN,URINE 1+ (NEGATIVE); UROBILINOGEN,URINE NORMAL (NORMAL)
[2019-06-30 00:51] LABS: APPEARANCE,URINE CLEAR (CLEAR); BACTERIA,URINE NEGATIVE /HPF (NEGATIVE); COLOR,URINE YELLOW (YELLOW); SQUAMOUS EPITHELIAL CELL,UR RARE /HPF (NEGATIVE)
[2019-06-30 01:28] LABS: CKMB % 0.9 % (<4); CREATINE KINASE 609 Units/L (39-308); TROPONIN I < 0.02 ng/mL (0-1.5)
[2019-06-30 01:32] LABS: CREATINE KINASE MB 5.6 ng/mL (0-4.0)
[2019-06-30 02:42] VITALS: BMI 26.9
[2019-06-30] MEDS ORDERED: NS 1000 ML 1,000 ML ONE ×2 (04:24→05:10)
[2019-06-30] MEDS ORDERED: NEURONTIN CAP 300 MG ONE (05:09)
[2019-06-30] MEDS: NEURONTIN CAP 300 MG PO SCH ×3 (05:40→21:05)
[2019-06-30 06:49] LABS: BASOPHILS % (AUTO) 0.5 % (0.2-1.0); EOSINOPHILS # (AUTO) 0.1 x10^3/uL (0.0-0.2); EOSINOPHILS % (AUTO) 1.1 % (0.9-2.9); HEMATOCRIT 34.9 % (42.0-54.0); HEMOGLOBIN 11.6 g/dL (13.5-18.0); LYMPHOCYTES # (AUTO) 1.6 X10^3/uL (1.3-2.9); MEAN CORPUSCULAR HEMOGLOBIN 28.1 pg (27.0-34.0); MEAN CORPUSCULAR HGB CONC 33.3 g/dL (33.0-35.0); MEAN CORPUSCULAR VOLUME 84.4 fL (80.0-100.0); MEAN PLATELET VOLUME 7.7 fL (7.4-11.0); MONOCYTES % (AUTO) 15.8 % (0.0-13.0); NEUTROPHILS # (AUTO) 3.4 x10^3/uL (2.2-4.8); NEUTROPHILS % (AUTO) 55.6 % (42.0-75.0); PLATELET COUNT 195 X10^3/uL (150.0-450.0); RED BLOOD COUNT 4.13 X10^6/uL (4.7-6.0); RED CELL DISTRIBUTION WIDTH 16.3 % (11.6-16.5); WHITE BLOOD COUNT 6.1 X10^3/uL (3.6-10.0)
[2019-06-30 07:00] LABS: CHLORIDE 110 mmol/L (98-107); SODIUM 142 mmol/L (136-145)
[2019-06-30 07:11] LABS: ALANINE AMINOTRANSFERASE 14 Units/L (12-78); ALBUMIN 2.8 g/dL (3.4-5.0); ALKALINE PHOSPHATASE 50 Units/L (46-116); ASPARTATE AMINO TRANSFERASE 19 Units/L (15-37); BLOOD UREA NITROGEN 43 mg/dL (7-18); CALCIUM 7.8 mg/dL (8.5-10.1); CARBON DIOXIDE 20.5 mmol/L (21-32); COR CA(FOR HYPOALB) 8.8 mg/dL (8.5-10.1); CREATININE 2.76 mg/dL (0.70-1.30); MAGNESIUM 1.7 mg/dL (1.7-2.9); TOTAL PROTEIN 6.4 g/dL (6.4-8.2); eGFR NON BLACK RACES 25 (>60)
[2019-06-30 07:12] LABS: CKMB % 0.8 % (<4); CREATINE KINASE 439 Units/L (39-308); CREATINE KINASE MB 3.4 ng/mL (0-4.0); TROPONIN I < 0.02 ng/mL (0-1.5)
[2019-06-30] MEDS ORDERED: ZESTRIL TAB 20 MG ONE (07:54)
[2019-06-30] MEDS: PriLOSEC PO SCH (08:19)
[2019-06-30] MEDS: ZESTRIL TAB 20 MG PO SCH (08:19)
[2019-06-30] MEDS: ROXICODONE TAB 5 MG PO PRN ×3 (08:26→19:24)
[2019-06-30] MEDS ORDERED: MOBIC TAB 15 MG PO SCH (09:00)
[2019-06-30] MEDS ORDERED: AMBIEN PO SCH (09:00)
[2019-06-30] MEDS ORDERED: ECOTRIN TAB 325 MG PO ONE (09:39)
[2019-06-30] MEDS: PLAVIX PO SCH (11:19)
[2019-06-30 12:21] LABS: CKMB % 0.7 % (<4); CREATINE KINASE 357 Units/L (39-308); CREATINE KINASE MB 2.5 ng/mL (0-4.0); TROPONIN I < 0.02 ng/mL (0-1.5)
[2019-06-30] MEDS: FLOMAX PO SCH (20:46)
[2019-06-30] MEDS: CRESTOR TAB 10 MG PO SCH (20:46)
[2019-06-30] MEDS: SEROquel TAB 100 MG PO SCH (20:46)
[2019-06-30] MEDS: AMBIEN PO SCH (20:46)
[2019-07-01] MEDS: NS 1000 ML 1,000 ML IV SCH ×4 (02:08→17:41)
[2019-07-01 05:31] LABS: BASOPHILS % (AUTO) 0.3 % (0.2-1.0); EOSINOPHILS # (AUTO) 0.1 x10^3/uL (0.0-0.2); EOSINOPHILS % (AUTO) 1.1 % (0.9-2.9); HEMATOCRIT 35.6 % (42.0-54.0); HEMOGLOBIN 11.7 g/dL (13.5-18.0); LYMPHOCYTES # (AUTO) 1.7 X10^3/uL (1.3-2.9); LYMPHOCYTES % (AUTO) 26.7 % (21.0-51.0); MEAN CORPUSCULAR HEMOGLOBIN 28.1 pg (27.0-34.0); MEAN CORPUSCULAR HGB CONC 32.8 g/dL (33.0-35.0); MEAN CORPUSCULAR VOLUME 85.7 fL (80.0-100.0); MEAN PLATELET VOLUME 8.4 fL (7.4-11.0); MONOCYTES % (AUTO) 15.3 % (0.0-13.0); NEUTROPHILS # (AUTO) 3.7 x10^3/uL (2.2-4.8); NEUTROPHILS % (AUTO) 56.6 % (42.0-75.0); PLATELET COUNT 195 X10^3/uL (150.0-450.0); RED BLOOD COUNT 4.15 X10^6/uL (4.7-6.0); RED CELL DISTRIBUTION WIDTH 16.6 % (11.6-16.5); WHITE BLOOD COUNT 6.5 X10^3/uL (3.6-10.0)
[2019-07-01 05:47] LABS: ALANINE AMINOTRANSFERASE 11 Units/L (12-78); ALBUMIN 2.7 g/dL (3.4-5.0); ALKALINE PHOSPHATASE 51 Units/L (46-116); ASPARTATE AMINO TRANSFERASE 13 Units/L (15-37); BLOOD UREA NITROGEN 17 mg/dL (7-18); CALCIUM 7.6 mg/dL (8.5-10.1); CARBON DIOXIDE 21.9 mmol/L (21-32); CHLORIDE 110 mmol/L (98-107); COR CA(FOR HYPOALB) 8.6 mg/dL (8.5-10.1); CREATININE 1.34 mg/dL (0.70-1.30); SODIUM 141 mmol/L (136-145); TOTAL PROTEIN 6.4 g/dL (6.4-8.2); eGFR NON BLACK RACES 57 (>60)
[2019-07-01] MEDS: NEURONTIN CAP 300 MG PO SCH ×3 (06:09→21:06)
[2019-07-01] MEDS ORDERED: ZESTRIL TAB 20 MG ONE (08:24)
[2019-07-01] MEDS: ECOTRIN TAB 325 MG PO SCH (08:53)
[2019-07-01] MEDS: PriLOSEC PO SCH (08:53)
[2019-07-01] MEDS: PLAVIX PO SCH (08:55)
[2019-07-01] MEDS: ZESTRIL TAB 20 MG PO SCH (08:56)
[2019-07-01] MEDS: ROXICODONE TAB 5 MG PO PRN ×2 (16:37→21:07)
[2019-07-01] MEDS ORDERED: CATAPRES-TTS-1 TD SCH (18:00)
[2019-07-01] MEDS: CRESTOR TAB 10 MG PO SCH (21:05)
[2019-07-01] MEDS: SEROquel TAB 100 MG PO SCH (21:06)
[2019-07-01] MEDS: FLOMAX PO SCH (21:06)
[2019-07-01] MEDS: AMBIEN PO SCH (21:07)
--- NOTE | 2019-07-01 22:08 | DR.H&P ---
H&P - History & Physical for Day of: H&P Date: 06/30/19 - Chief Complaint Chief Complaint: GENERALIZED WEAKNESS, SYNCOPE - History of Present Illness History of Present Illness: IS A 64 YEAR OLD BLACK MALE WHO PRESENTED TO THE ER WITH REPORTS OF GENERALIZED WEAKNESS AND A SYNCOPAL EPISODE. HE IS ALERT AND ORIENTED ON ARRIVAL TO THE ER. ON ARRIVAL, VITALS WERE 98.2-90-20-100%RA-140/57. LABS WERE OBTAINED. ABNORMAL LAB VALUES INCLUDE THE FOLLOWING: HCT 40.8, BUN 59, CREATININE 5.77, GLUCOSE 100, CALCIUM 8.3, CREATINE KINASE 806, CK-MB 7.4, TOTAL PROTEIN 8.5, GLOBULIN 4.6. URINALYSIS IS UNREMARKABLE. DRUG SCREEN IS POSITIVE FOR COCAINE AND MARIJUANA. A BRAIN CT WAS OBTAINED AND REVEALED: Subacute to chronic infarct within the right centrum semiovale and superior basal ganglia. No loss of aguilera-white demonstration identified to suggest acute ischemia. No acute intracranial hemorrhage. Mild generalized cerebral atrophy. A CHEST XRAY WAS OBTAINED AND REVEALED: No acute cardiopulmonary disease. EKG REVEALED: SINUS RHYTHM WITH HR 89. HE WAS ADMITTED FOR FURTHER EVALUATION AND TREATMENT OF ACUTE RENAL FAILURE, DEHYDRATION, SYNCOPE, AND GENERALIZED WEAKNESS. HE WAS STARTED ON NORMAL SALINE AT 250ML/HR, ECOTRIN 325MG PO DAILY, ROSUVASTATIN 10MG PO HS, PLAVIX 75MG PO DAILY, AND HOME MEDICATIONS WERE RESUMED. WE WILL REPEAT CARDIAC ENZYMES AND EKGS. OTHERWISE, WE PLAN TO FOLLOW UP WITH AM LABS AND CONTINUE TO MONITOR. - Past Medical History Past Medical History: Hypertension, GERD - Past Surgical History Surgical History: Abdominal Surgery, Ortho Surgery, Other - Family History Family Medical History: Cancer, Heart Failure, Hypertension - Social History Does patient currently use any type of tobacco product: Yes Have you used tobacco products in the last 12 months: Yes Type of Tobacco Use: Cigarettes How many years tobacco product used: 50 Does any household member use tobacco: Yes Alcohol Use: Occasionally Drug Use: Cocaine, Marijuana - Medications Home Medications: No Known Drug Allergies Allergy (Verified 03/22/19 14:10) CONTINUE taking the following medications gabapentin 300 mg PO TID 06/29/19 [History] lisinopril 20 mg PO DAILY 06/29/19 [History] meloxicam 7.5 mg PO DAILY 06/29/19 [History] oxycodone 20 mg PO QID PRN 06/29/19 [History] quetiapine 100 mg PO HS 06/29/19 [History] - Review of Systems Constitutional: Weakness, Malaise Eyes: No Symptoms Reported ENT: No Symptoms Reported Respiratory: No Symptoms Reported Cardiovascular: No Symptoms Reported Gastrointestinal: No Symptoms Reported Genitourinary: No Symptoms Reported Musculoskeletal: No Symptoms Reported Skin: No Symptoms Reported Neurological: See HPI, Weakness, Other (SYNCOPE ) - Physical Exam Vital Signs: Temperature 98.5 F Pulse Rate [Left] 73 Pulse Rate 88 Respiratory Rate 18 Blood Pressure [Left Arm] 145/68 Blood Pressure [Right Arm] 158/82 Blood Pressure 136/70 O2 Sat by Pulse Oximetry 97 Oriented: Normal Eyes: Normal Ear: Normal Nose: Normal Throat: Normal Respiratory: Diminished Throughout Cardiovascular: Normal. negative: S3, S4, Murmur : Normal Auscultation: Bowel Sounds: Normal Palpation: Normal Tenderness: Normal Skin: Normal Musculoskeletal: Normal Psychiatric: Normal Mood Description: Calm Affect: Normal Speech Pattern: Clear - Assessment/Plan (1) Dehydration Status: Acute Plan: NORMAL SALINE AT 250ML/HR, CONTINUE TO MONITOR (2) Acute renal failure Qualifiers: Acute renal failure type: unspecified Qualified Code(s): N17.9 - Acute kidney failure, unspecified Status: Acute Plan: NORMAL SALINE AT 250ML/HR, CONTINUE TO MONITOR (3) Generalized weakness Status: Acute (4) Syncopal episodes Qualifiers: Syncope type: unspecified Qualified Code(s): R55 - Syncope and collapse Status: Acute (5) History of CVA (cerebrovascular accident) Status: Acute Plan: ASPIRIN, PLAVIX, ROSUVASTATIN, CONTINUE TO MONITOR - Allergies Allergies/Adverse Reactions: Allergies Allergy/AdvReac Type Severity Reaction Status Date / Time No Known Drug Allergies Allergy Verified 03/22/19 14:10
--- NOTE | 2019-07-01 22:46 | PCM.PROG ---
Progress Note - Progress Note for Day of Date of Exam: 07/01/19 - Subjective Subjective: WAS ADMITTED FOR DEHYDRATION, ACUTE RENAL FAILURE, SYNCOPAL EPISODE, AND GENERALIZED WEAKNESS. TODAY, HE IS ALERT AND ORIENTED, LYING IN BED ON MORNING ROUNDS. HE CONTINUES WITH COMPLAINTS OF WEAKNESS TODAY. ON EXAMINATION, HEART IS REGULAR IN RATE AND RHYTHM. BILATERAL LUNGS ARE NOTED WITH DIMINISHED LUNG SOUNDS THROUGHOUT. ABDOMEN IS ROUND, SOFT, AND NON-TENDER WITH NORMAL BOWEL SOUNDS NOTED IN ALL QUADRANTS. HIS VITALS THIS MORNING ARE: 99.0-84-18-94%NC-174/88. LABS WERE OBTAINED. ABNORMAL LAB VALUES INCLUDE THE FOLLOWING: RBC 4.15, HGB 11.7, HCT 35.6, CHLORIDE 110, CREATININE 1.34, CALCIUM 7.6, AST 13, ALT 11, ALBUMIN 2.7. NO CHANGES NOTED TO EKGS. HE IS CURRENTLY RECEIVING NORMAL SALINE AT 250ML/HR, PLAVIX, ASA, ROSUVASTATIN, AND HIS HOME MEDICATIONS WERE RESUMED. TODAY, WE WILL ADD A CATAPRES PATCH DUE TO HYPERTENSION. OTHERWISE, WE WILL FOLLOW UP WITH AM LABS AND CONTINUE TO MONITOR. - Past Medical Family Social History Past Med/Fam/Surg Hx: No changes since H&P Allergies: Allergies No Known Drug Allergies Allergy (Verified 03/22/19 14:10) - Review of Systems ROS: No change since H&P - Vital Signs and I&O's Vital Signs: Temperature 98.5 F Pulse Rate [Left] 73 Pulse Rate 88 Respiratory Rate 20 Blood Pressure [Left Arm] 145/68 Blood Pressure [Right Arm] 158/82 Blood Pressure 136/70 O2 Sat by Pulse Oximetry 97 Intake and Output: Intake & Output 06/29/19 06/30/19 07/01/19 07/02/19 11:59 11:59 11:59 11:59 Intake Total 210 / 210 5760 / 5760 1080 / 1080 Output Total 800 / 800 4125 / 4125 1800 / 1800 Balance -590 / -590 1635 / 1635 -720 / -720 - Physical Exam Oriented: Normal Eyes: Normal Ear: Normal Nose: Normal Throat: Normal Respiratory: Generalized, Diminished Cardiovascular: Normal. negative: S3, S4, Murmur : Normal Auscultation: Bowel Sounds: Normal Palpation: Normal Tenderness: Normal Skin: Normal Musculoskeletal: Normal Psychiatric: Normal Mood Description: Calm Affect: Normal Speech Pattern: Clear - Laboratory and Diagnostics Result Diagrams: 07/01/19 04:16 07/01/19 04:16 Labs: Laboratory WBC 6.5 X10^3/uL (3.6-10.0) 07/01/19 04:16 RBC 4.15 X10^6/uL (4.7-6.0) L 07/01/19 04:16 Hgb 11.7 g/dL (13.5-18.0) L 07/01/19 04:16 Hct 35.6 % (42.0-54.0) L 07/01/19 04:16 MCV 85.7 fL (80.0-100.0) 07/01/19 04:16 MCH 28.1 pg (27.0-34.0) 07/01/19 04:16 MCHC 32.8 g/dL (33.0-35.0) L 07/01/19 04:16 RDW 16.6 % (11.6-16.5) H 07/01/19 04:16 Plt Count 195 X10^3/uL (150.0-450.0) 07/01/19 04:16 MPV 8.4 fL (7.4-11.0) 07/01/19 04:16 Neut % (Auto) 56.6 % (42.0-75.0) 07/01/19 04:16 Lymph % (Auto) 26.7 % (21.0-51.0) 07/01/19 04:16 [place] % (Auto) 15.3 % (0.0-13.0) H 07/01/19 04:16 Eos % (Auto) 1.1 % (0.9-2.9) 07/01/19 04:16 Baso % (Auto) 0.3 % (0.2-1.0) 07/01/19 04:16 Neut # (Auto) 3.7 x10^3/uL (2.2-4.8) 07/01/19 04:16 Lymph # (Auto) 1.7 X10^3/uL (1.3-2.9) 07/01/19 04:16 [place] # (Auto) 1.0 x10^3/uL (0.3-0.8) H 07/01/19 04:16 Eos # (Auto) 0.1 x10^3/uL (0.0-0.2) 07/01/19 04:16 Baso # (Auto) 0.0 X10^3/uL (0.0-0.1) 07/01/19 04:16 Absolute Nucleated RBC 0.0 /100WBC 07/01/19 04:16 Sodium 141 mmol/L (136-145) 07/01/19 04:16 Corrected Sodium TNP 07/01/19 04:16 Potassium 4.4 mmol/L (3.5-5.1) 07/01/19 04:16 Chloride 110 mmol/L (98-107) H 07/01/19 04:16 Carbon Dioxide 21.9 mmol/L (21-32) 07/01/19 04:16 BUN 17 mg/dL (7-18) 07/01/19 04:16 Creatinine 1.34 mg/dL (0.70-1.30) H 07/01/19 04:16 Est GFR (MDRD) Af Amer > 60 (>60) 07/01/19 04:16 Est GFR (MDRD) Non-Af 57 (>60) L 07/01/19 04:16 Glucose 95 mg/dL (65-99) 07/01/19 04:16 Calcium 7.6 mg/dL (8.5-10.1) L 07/01/19 04:16 Corrected Calcium 8.6 mg/dL (8.5-10.1) 07/01/19 04:16 Magnesium 1.7 mg/dL (1.7-2.9) 06/30/19 06:25 Total Bilirubin 0.30 mg/dL (0.2-1.0) 07/01/19 04:16 AST 13 Units/L (15-37) L 07/01/19 04:16 ALT 11 Units/L (12-78) L 07/01/19 04:16 Alkaline Phosphatase 51 Units/L (46-116) 07/01/19 04:16 Creatine Kinase 357 Units/L (39-308) H 06/30/19 11:45 CK-MB (CK-2) 2.5 ng/mL (0-4.0) 06/30/19 11:45 CK/CKMB % Calc 0.7 % (<4) 06/30/19 11:45 Troponin I < 0.02 ng/mL (0-1.5) 06/30/19 11:45 Total Protein 6.4 g/dL (6.4-8.2) 07/01/19 04:16 Albumin 2.7 g/dL (3.4-5.0) L 07/01/19 04:16 Globulin 3.7 g/dL (2.5-4.5) 07/01/19 04:16 Albumin/Globulin Ratio 0.7 Ratio (1.1-2.1) L 07/01/19 04:16 Specimen Type Catherized urine 06/30/19 00:32 Urine Color Yellow (YELLOW) 06/30/19 00:32 Urine Appearance Clear (CLEAR) 06/30/19 00:32 Urine pH 5.0 (5.0 - 8.0) 06/30/19 00:32 Ur Specific [place] 1.015 (1.000-1.030) 06/30/19 00:32 Urine Protein 1+ (NEGATIVE) 06/30/19 00:32 Urine Glucose (UA) Negative (NEGATIVE) 06/30/19 00:32 Urine Ketones Negative (NEGATIVE) 06/30/19 00:32 Urine Occult Blood 4+ (NEGATIVE) 06/30/19 00:32 Urine Nitrite Negative (NEGATIVE) 06/30/19 00:32 Urine Bilirubin Negative (NEGATIVE) 06/30/19 00:32 Urine Urobilinogen Normal (NORMAL) 06/30/19 00:32 Ur Leukocyte Esterase Negative (NEGATIVE) 06/30/19 00:32 Urine RBC 5-10 /HPF (NONE SEEN) 06/30/19 00:32 Urine WBC None seen /HPF (NONE SEEN) 06/30/19 00:32 Ur Squamous Epith Cells Rare /HPF (NEGATIVE) 06/30/19 00:32 Urine Bacteria Negative /HPF (NEGATIVE) 06/30/19 00:32 Ur Culture Indicated? No/not indicated 06/30/19 00:32 Urine Opiates Screen Negative (NEG=<300) 06/30/19 00:32 Urine Methadone Screen Negative (NEG=<300) 06/30/19 00:32 Ur Barbiturates Screen Negative (NEG=<200) 06/30/19 00:32 Ur Phencyclidine Scrn Negative (NEG=<25) 06/30/19 00:32 Ur Amphetamines Screen Negative (NEG=<1000) 06/30/19 00:32 U Benzodiazepines Scrn Negative (NEG=<200) 06/30/19 00:32 Urine Cocaine Screen Positive (NEG=<300) 06/30/19 00:32 U Marijuana (THC) Screen Positive (NEG=<50) A 06/30/19 00:32 - Plan (1) Dehydration Status: Acute Plan: NORMAL SALINE AT 250ML/HR, CONTINUE TO MONITOR (2) Acute renal failure Status: Acute Qualifiers: Acute renal failure type: unspecified Qualified Code(s): N17.9 - Acute kidney failure, unspecified Plan: NORMAL SALINE AT 250ML/HR, CONTINUE TO MONITOR (3) Generalized weakness Status: Acute (4) Syncopal episodes Status: Acute Qualifiers: Syncope type: unspecified Qualified Code(s): R55 - Syncope and collapse (5) History of CVA (cerebrovascular accident) Status: Acute Plan: ASPIRIN, PLAVIX, ROSUVASTATIN, CONTINUE TO MONITOR (6) HTN (hypertension) Status: Acute Qualifiers: Hypertension type: essential hypertension Qualified Code(s): I10 - Essential (primary) hypertension Plan: LISINOPRIL, CATAPRES PATCH, CONTINUE TO MONITOR
[2019-07-02 06:09] LABS: BASOPHILS % (AUTO) 0.2 % (0.2-1.0); EOSINOPHILS # (AUTO) 0.1 x10^3/uL (0.0-0.2); EOSINOPHILS % (AUTO) 1.7 % (0.9-2.9); HEMATOCRIT 37.1 % (42.0-54.0); HEMOGLOBIN 12.2 g/dL (13.5-18.0); LYMPHOCYTES # (AUTO) 1.8 X10^3/uL (1.3-2.9); LYMPHOCYTES % (AUTO) 27.8 % (21.0-51.0); MEAN CORPUSCULAR HEMOGLOBIN 27.8 pg (27.0-34.0); MEAN CORPUSCULAR HGB CONC 32.8 g/dL (33.0-35.0); MEAN CORPUSCULAR VOLUME 84.9 fL (80.0-100.0); MEAN PLATELET VOLUME 7.6 fL (7.4-11.0); MONOCYTES # (AUTO) 0.9 x10^3/uL (0.3-0.8); MONOCYTES % (AUTO) 14.8 % (0.0-13.0); NEUTROPHILS # (AUTO) 3.5 x10^3/uL (2.2-4.8); NEUTROPHILS % (AUTO) 55.5 % (42.0-75.0); PLATELET COUNT 204 X10^3/uL (150.0-450.0); RED BLOOD COUNT 4.37 X10^6/uL (4.7-6.0); RED CELL DISTRIBUTION WIDTH 16.7 % (11.6-16.5); WHITE BLOOD COUNT 6.3 X10^3/uL (3.6-10.0)
[2019-07-02 06:21] LABS: ALANINE AMINOTRANSFERASE 11 Units/L (12-78); ALBUMIN 2.8 g/dL (3.4-5.0); ALKALINE PHOSPHATASE 52 Units/L (46-116); ASPARTATE AMINO TRANSFERASE 14 Units/L (15-37); BLOOD UREA NITROGEN 12 mg/dL (7-18); CALCIUM 8.5 mg/dL (8.5-10.1); CHLORIDE 108 mmol/L (98-107); COR CA(FOR HYPOALB) 9.5 mg/dL (8.5-10.1); CREATININE 1.09 mg/dL (0.70-1.30); SODIUM 140 mmol/L (136-145); TOTAL PROTEIN 6.8 g/dL (6.4-8.2); eGFR NON BLACK RACES > 60 (>60)
[2019-07-02] MEDS: NS 1000 ML 1,000 ML IV SCH ×2 (06:24→06:27)
[2019-07-02] MEDS: NEURONTIN CAP 300 MG PO SCH (06:25)
[2019-07-02 08:13] VITALS: BP 156/72
[2019-07-02] MEDS ORDERED: ZESTRIL TAB 20 MG ONE (08:42)
[2019-07-02] MEDS: PLAVIX PO SCH (08:56)
[2019-07-02] MEDS: PriLOSEC PO SCH (08:56)
[2019-07-02] MEDS: ZESTRIL TAB 20 MG PO SCH (08:57)
[2019-07-02] MEDS: ECOTRIN TAB 325 MG PO SCH (08:57)
== END 2019-07-02 11:50 | disposition home or self-care (01) | DRG 684 ==
LOC: ER 18:29 → MED/SURG 23:48
PROVIDERS: ADMIT Internal Medicine; ATTEND Internal Medicine
DX: N17.9 Acute kidney failure, unspecified; F14.90 Cocaine use, unspecified, uncomplicated; Z79.899 Other long term (current) drug therapy; I10 Essential (primary) hypertension; R55 Syncope and collapse; R53.1 Weakness; F12.90 Cannabis use, unspecified, uncomplicated; Z86.73 Personal history of transient ischemic attack (TIA), and cerebral infarction without residual deficits; E86.0 Dehydration; K21.9 Gastro-esophageal reflux disease without esophagitis
CPT/HCPCS: 36415; 51702; 70450; 71010; 71045; 80053; 80307; 81001; 82550; 82553; 83735; 84484; 85025; 93005; 94760; 96365; 96367; 99284; A4222; G0434; J7030